=== PATIENT | male | born 1965 | race Caucasian/White ===

== ENCOUNTER 2020-06-15 14:49 | Inpatient (IN) ==
[2020-06-15 16:39] LABS: ABS Eosinophils 0.2 10^3/ul (0-0.6); ABS Lymphocytes 0.8 10^3/ul (1.0-4.8); ABS Monocytes 0.7 10^3/ul (0-0.8); ABS Neutrophils 9.6 10^3/ul (1.5-7.7); Eosinophil % 1.4 %; Hematocrit 35 % (42-52); Hemoglobin 12.3 g/dL (14.0-18.0); Lymphocyte % 7.2 %; Mean Corpuscular HGB Conc 35 g/dL (31-36); Mean Corpuscular Hemoglobin 32 pg (27-31); Mean Corpuscular Volume 92 fL (80-94); Mean Platelet Volume 7.8 fL (7.4-10.4); Platelet Count 237 10^3/uL (150-450); Red Cell Distribution Width 13 % (10-15); White Blood Count 11.4 10^3/uL (3.5-10.8)
[2020-06-15 16:51] LABS: Anion Gap 6 mmol/L (2-11); BUN/Creatinine Ratio 18.4 (8-20); Blood Urea Nitrogen 23 mg/dL (6-24); CO2 Carbon Dioxide 27 mmol/L (22-32); Calcium 9.4 mg/dL (8.6-10.3); Chloride 100 mmol/L (101-111); EGFR Non-African American 59.5 (>60); Glucose 98 mg/dL (70-100); Potassium 3.9 mmol/L (3.5-5.0); Sodium 133 mmol/L (135-145)
[2020-06-15 16:54] LABS: Activated Partial Thrombo Time 38.8 seconds (26.0-38.0); INR 1.14 (0.82-1.09); Troponin I 0.05 ng/mL (<0.03)
[2020-06-15 17:14] LABS: TSH Ultra Thyroid Stim Horm 1.52 mcIU/mL (0.34-5.60)
[2020-06-15 17:16] LABS: Free T4 0.92 ng/dL (0.61-1.12)
[2020-06-15] MEDS ORDERED: Senna TAB 8.6 mg TAB PO PRN (17:46)
[2020-06-15] MEDS ORDERED: Ondansetron 4 mg VIAL 2 MG/ML 2 ml VIAL IV PRN (17:46)
[2020-06-15] MEDS ORDERED: Oxymetazoline 0.05% NASAL SPR 15 ML BTL BOTH NARES ONE (17:55)
[2020-06-15] MEDS ORDERED: Magnesium Sulfate IV 1GM/100ML 1 GM/100 ML BAG IV ONE (17:58)
[2020-06-15] MEDS ORDERED: KCL 20 MEQ/100 ML IVPREMIX 20 MEQ/100 ML BAG IV ONE (17:58)
[2020-06-15 18:19] LABS: Magnesium 1.9 mg/dL (1.9-2.7)
[2020-06-15] MEDS ORDERED: Lactated Ringers 1000 ml BAG 1,000 ML IV SCH (19:00)
[2020-06-15 20:12] LABS: Troponin I 0.05 ng/mL (<0.03)
[2020-06-15] MEDS: Dabigatran 150 mg CAP (NF) PO SCH (21:03)
[2020-06-16 04:38] LABS: ABS Eosinophils 0.2 10^3/ul (0-0.6); ABS Lymphocytes 1.4 10^3/ul (1.0-4.8); ABS Monocytes 0.7 10^3/ul (0-0.8); ABS Neutrophils 5.5 10^3/ul (1.5-7.7); Hematocrit 39 % (42-52); Hemoglobin 13.2 g/dL (14.0-18.0); Mean Corpuscular HGB Conc 34 g/dL (31-36); Mean Corpuscular Hemoglobin 32 pg (27-31); Mean Corpuscular Volume 93 fL (80-94); Mean Platelet Volume 7.3 fL (7.4-10.4); Platelet Count 210 10^3/uL (150-450); Red Blood Count 4.16 10^6 /uL (4.18-5.48); Red Cell Distribution Width 13 % (10-15); White Blood Count 7.9 10^3/uL (3.5-10.8)
[2020-06-16 05:15] LABS: BUN/Creatinine Ratio 18.9 (8-20); Calcium 9.5 mg/dL (8.6-10.3); EGFR African American 87.1 (>60)
[2020-06-16] MEDS: Aspirin EC 81 mg TAB.EC (enteric coated) PO SCH (08:38)
[2020-06-16] MEDS: Vitamin THERAPEUTIC TAB PO SCH (08:39)
[2020-06-16] MEDS: CMC:OMEGA-3 FATTY ACID 1000 mg(NF) PO SCH (08:39)
[2020-06-16] MEDS: Dabigatran 150 mg CAP (NF) PO SCH ×2 (10:14→21:47)
[2020-06-17] MEDS: Vitamin THERAPEUTIC TAB PO SCH (09:19)
[2020-06-17] MEDS: Aspirin EC 81 mg TAB.EC (enteric coated) PO SCH (09:19)
[2020-06-17 09:25] LABS: ABS Basophils 0.1 10^3/ul (0-0.2); ABS Eosinophils 0.3 10^3/ul (0-0.6); ABS Monocytes 0.6 10^3/ul (0-0.8); ABS Neutrophils 5.3 10^3/ul (1.5-7.7); Eosinophil % 4.7 %; Hematocrit 36 % (42-52); Hemoglobin 12.4 g/dL (14.0-18.0); Lymphocyte % 14.1 %; Mean Corpuscular HGB Conc 35 g/dL (31-36); Mean Corpuscular Hemoglobin 32 pg (27-31); Mean Corpuscular Volume 93 fL (80-94); Mean Platelet Volume 7.4 fL (7.4-10.4); Platelet Count 237 10^3/uL (150-450); Red Blood Count 3.84 10^6 /uL (4.18-5.48); Red Cell Distribution Width 13 % (10-15); White Blood Count 7.3 10^3/uL (3.5-10.8)
[2020-06-17] MEDS: CMC:OMEGA-3 FATTY ACID 1000 mg(NF) PO SCH (09:28)
[2020-06-17] MEDS: Dabigatran 150 mg CAP (NF) PO SCH ×2 (09:28→20:01)
[2020-06-17 09:40] LABS: BUN/Creatinine Ratio 14.6 (8-20); Calcium 9.3 mg/dL (8.6-10.3); EGFR African American 90.1 (>60); EGFR Non-African American 74.4 (>60); Potassium 3.9 mmol/L (3.5-5.0)
[2020-06-18 06:07] LABS: Hematocrit 35 % (42-52); Hemoglobin 12.1 g/dL (14.0-18.0); Mean Corpuscular HGB Conc 35 g/dL (31-36); Mean Corpuscular Hemoglobin 32 pg (27-31); Mean Corpuscular Volume 93 fL (80-94); Mean Platelet Volume 7.2 fL (7.4-10.4); Platelet Count 228 10^3/uL (150-450); Red Blood Count 3.79 10^6 /uL (4.18-5.48); Red Cell Distribution Width 13 % (10-15); White Blood Count 7.1 10^3/uL (3.5-10.8)
[2020-06-18 06:25] LABS: BUN/Creatinine Ratio 16.3 (8-20); Calcium 9.3 mg/dL (8.6-10.3); EGFR African American 89.1 (>60); EGFR Non-African American 73.6 (>60); Potassium 3.9 mmol/L (3.5-5.0)
[2020-06-18] MEDS: Vitamin THERAPEUTIC TAB PO SCH (08:35)
[2020-06-18] MEDS: Aspirin EC 81 mg TAB.EC (enteric coated) PO SCH (08:36)
[2020-06-18] MEDS: Dabigatran 150 mg CAP (NF) PO SCH (08:36)
[2020-06-18] MEDS: CMC:OMEGA-3 FATTY ACID 1000 mg(NF) PO SCH (08:37)
[2020-06-18 11:50] VITALS: BP 93/66
== END 2020-06-18 13:49 | disposition home or self-care (01) | DRG 309 ==
LOC: ED 14:49 → MEDTELE 14:49 → ICU 14:49 → MEDTELE 06-16 21:59
PROVIDERS: ADMIT Internal Medicine; ATTEND Hospitalist

== ENCOUNTER 2021-04-25 20:28 | Inpatient (IN) ==
[2021-04-25 22:36] LABS: ALT 84 U/L (7-52); AST 144 U/L (13-39); Albumin 3.5 g/dL (3.2-5.2); Albumin/Globulin Ratio 1.2 (1-3); Alkaline Phosphatase 63 U/L (35-149); Anion Gap 12 mmol/L (2-11); Blood Urea Nitrogen 44 mg/dL (6-24); CO2 Carbon Dioxide 20 mmol/L (22-32); Calcium 8.2 mg/dL (8.6-10.3); Chloride 93 mmol/L (101-111); EGFR African American 55.4 (>60); EGFR Non-African American 45.8 (>60); Glucose 153 mg/dL (70-100); Potassium 2.8 mmol/L (3.5-5.0); Sodium 125 mmol/L (135-145); Total Protein 6.5 g/dL (6.4-8.9)
[2021-04-25 22:43] LABS: ABS Lymphocytes 0.1 10^3/ul (1.0-4.8); ABS Monocytes 0.1 10^3/ul (0-0.8); ABS Neutrophils 2.3 10^3/ul (1.5-7.7); Hematocrit 34 % (42-52); Hemoglobin 11.8 g/dL (14.0-18.0); Lymphocyte % 5.3 %; Mean Corpuscular HGB Conc 34 g/dL (31-36); Mean Corpuscular Hemoglobin 31 pg (27-31); Mean Corpuscular Volume 90 fL (80-94); Nucleated Red Blood Cells % 0.1; Platelet Count 76 10^3/uL (150-450); Red Blood Count 3.83 10^6 /uL (4.18-5.48); Red Cell Distribution Width 13 % (10-15); White Blood Count 2.6 10^3/uL (3.5-10.8)
[2021-04-25 22:44] LABS: Anisocytosis 1+
[2021-04-25 22:45] LABS: Platelet Morphology Large
[2021-04-25 22:46] LABS: Troponin I 0.23 ng/mL (<0.03)
[2021-04-25] MEDS ORDERED: cefTRIAXone 1 gm/50 mL NS BAG 1 GM/50 ML BAG IV ONE ×2 (23:19→23:34)
[2021-04-25] MEDS ORDERED: Azithromycin 500 mg/250 ml NS 500 MG/250 ML BAG IVPB ONE (23:19)
[2021-04-26] MEDS ORDERED: Potassium Chlor 20 meq TAB.ER PO ONE ×2 (01:13→02:15)
[2021-04-26 01:44] LABS: C Reactive Protein 109.52 mg/L (<8.01); Creatine Kinase 1600 U/L (10-223)
[2021-04-26] MEDS ORDERED: NS 0.9% 1000 ml BAG 500 ML IV SCH (03:30)
[2021-04-26 03:33] LABS: Magnesium 1.4 mg/dL (1.9-2.7)
[2021-04-26 03:54] LABS: Troponin I 0.23 ng/mL (<0.03)
[2021-04-26 03:58] LABS: RBC Parasite Smear No Parasites Seen (No Parasite)
[2021-04-26] MEDS ORDERED: Magnesium Sulf 4 GM/100 ML IV 4,000 MG/100 ML BAG IVPB ONE (05:18)
[2021-04-26 06:33] LABS: Urine Appearance Cloudy; Urine Bilirubin Negative (Negative); Urine Blood 3+ (Negative); Urine Color Amber; Urine Glucose Negative (Negative); Urine Ketones Negative (Negative); Urine Nitrite Negative (Negative); Urine Protein 2+(100 mg/dL) (Negative); Urine Specific Gravity 1.021 (1.002-1.030); Urine Urobilinogen Negative (Negative)
[2021-04-26 06:34] LABS: Urine Sodium Concentration < 18 mmol/L
[2021-04-26 06:44] LABS: Albumin/Globulin Ratio 1.3 (1-3); Calcium 6.8 mg/dL (8.6-10.3); EGFR Non-African American 63.6 (>60); Globulin 2.4 g/dL (2-4); Magnesium 1.3 mg/dL (1.9-2.7); Potassium 2.9 mmol/L (3.5-5.0); Total Bilirubin 0.5 mg/dL (0.2-1.0); Total Protein 5.4 g/dL (6.4-8.9)
[2021-04-26 06:52] LABS: Urine Bacteria Absent (Absent); Urine Granular Casts Present (Absent); Urine Red Blood Cell 2+(6-10/hpf) (Absent); Urine Squamous Epithelial Cell Present (Absent); Urine White Blood Cell 1+(6-10/hpf) (Absent)
[2021-04-26] MEDS ORDERED: Calcium Gluconate 2 GM in NS 0.9% 100 ml BAG 100 ML IVPB ONE (06:59)
[2021-04-26 07:23] LABS: ABS Lymphocytes 0.2 10^3/ul (1.0-4.8); ABS Monocytes 0.1 10^3/ul (0-0.8); Hematocrit 30 % (42-52); Hemoglobin 10.5 g/dL (14.0-18.0); Lymphocyte % 7.9 %; Mean Corpuscular HGB Conc 35 g/dL (31-36); Mean Corpuscular Hemoglobin 31 pg (27-31); Mean Corpuscular Volume 90 fL (80-94); Red Blood Count 3.36 10^6 /uL (4.18-5.48); Red Cell Distribution Width 14 % (10-15); Urine Creatinine Concentration 179.78 mg/dL; White Blood Count 2.2 10^3/uL (3.5-10.8)
[2021-04-26 07:25] LABS: Platelet Count 55 10^3/uL (150-450)
[2021-04-26] MEDS ORDERED: NS 0.9% 1000 ml BAG 1,000 ML IV ONE (09:34)
[2021-04-26] MEDS: KCL 20 MEQ/100 ML IVPREMIX 20 MEQ/100 ML BAG IV SCH ×2 (11:07→14:53)
[2021-04-26] MEDS ORDERED: Vancomycin 1,500 MG in NS 0.9% 250 ml 250 ML IVPB ONE (12:00)
[2021-04-26] MEDS: Multivitamins/Minerals TAB PO SCH (13:12)
[2021-04-26] MEDS: Dabigatran 150 mg CAP (NF) PO SCH ×2 (13:12→23:13)
[2021-04-26] MEDS: CMC:OMEGA-3 FATTY ACID 1000 mg(NF) PO SCH (13:12)
[2021-04-26] MEDS ORDERED: NS 0.9% 500 ml BAG 500 ML IV ONE (13:33)
[2021-04-26] MEDS ORDERED: Vancomycin per Pharmacy 1 EA NOTE FOLLOW UP PRN (16:09)
[2021-04-26 18:21] LABS: EGFR African American 71.4 (>60); Potassium 3.6 mmol/L (3.5-5.0)
[2021-04-26 19:31] LABS: Magnesium 2.3 mg/dL (1.9-2.7)
[2021-04-26 22:36] LABS: Troponin I 0.14 ng/mL (<0.03)
[2021-04-26] MEDS: cefTRIAXone 2 GM ADDV.VIAL 2 GM in NS 0.9% 100 ml BAG 100 ML IV SCH (23:11)
[2021-04-26] MEDS ORDERED: Azithromycin 500 mg/250 ml NS 500 MG/250 ML BAG IVPB SCH (23:55)
[2021-04-27] MEDS ORDERED: Vancomycin 1,250 MG in NS 0.9% 250 ml 250 ML IVPB SCH
[2021-04-27 06:39] LABS: Hematocrit 33 % (42-52); Hemoglobin 11.5 g/dL (14.0-18.0); Mean Corpuscular HGB Conc 35 g/dL (31-36); Mean Corpuscular Hemoglobin 31 pg (27-31); Mean Corpuscular Volume 90 fL (80-94); Platelet Count 44 10^3/uL (150-450); Red Blood Count 3.66 10^6 /uL (4.18-5.48); Red Cell Distribution Width 14 % (10-15); White Blood Count 2.7 10^3/uL (3.5-10.8)
[2021-04-27 06:44] LABS: Anion Gap 6 mmol/L (2-11); Blood Urea Nitrogen 32 mg/dL (6-24); CO2 Carbon Dioxide 23 mmol/L (22-32); Chloride 98 mmol/L (101-111); EGFR African American 81.8 (>60); EGFR Non-African American 67.6 (>60); Glucose 123 mg/dL (70-100); Magnesium 1.9 mg/dL (1.9-2.7); Potassium 3.9 mmol/L (3.5-5.0); Sodium 127 mmol/L (135-145); Troponin I 0.14 ng/mL (<0.03)
[2021-04-27 07:31] LABS: RBC Morphology Normal (Normal)
[2021-04-27 07:33] LABS: ABS Lymphocytes 0.5 10^3/ul (1.0-4.8); ABS Monocytes 0.4 10^3/ul (0-0.8); ABS Neutrophils 1.9 10^3/ul (1.5-7.7)
[2021-04-27] MEDS: Multivitamins/Minerals TAB PO SCH (08:35)
[2021-04-27] MEDS: Dabigatran 150 mg CAP (NF) PO SCH (08:35)
[2021-04-27] MEDS: CMC:OMEGA-3 FATTY ACID 1000 mg(NF) PO SCH (08:35)
[2021-04-27] MEDS: Aspirin EC 81 mg TAB.EC (enteric coated) PO SCH (08:35)
[2021-04-27] MEDS ORDERED: Furosemide 20 mg/2 ml IV VIAL IV ONE (22:10)
[2021-04-27] MEDS: cefTRIAXone 2 GM ADDV.VIAL 2 GM in NS 0.9% 100 ml BAG 100 ML IV SCH (22:29)
[2021-04-28 04:52] LABS: Hematocrit 31 % (42-52); Hemoglobin 10.6 g/dL (14.0-18.0); Mean Corpuscular HGB Conc 34 g/dL (31-36); Mean Corpuscular Hemoglobin 31 pg (27-31); Mean Corpuscular Volume 90 fL (80-94); Mean Platelet Volume 10.9 fL (7.4-10.4); Platelet Count 52 10^3/uL (150-450); Red Blood Count 3.46 10^6 /uL (4.18-5.48); Red Cell Distribution Width 14 % (10-15); White Blood Count 6.1 10^3/uL (3.5-10.8)
[2021-04-28 05:07] LABS: Calcium 7.9 mg/dL (8.6-10.3); EGFR African American 80.9 (>60); EGFR Non-African American 66.9 (>60); Potassium 3.4 mmol/L (3.5-5.0)
[2021-04-28 05:38] LABS: RBC Morphology Normal (Normal)
[2021-04-28 05:41] LABS: Dohle Bodies Present
[2021-04-28 05:42] LABS: ABS Lymphocytes 1.4 10^3/ul (1.0-4.8); ABS Neutrophils 3.6 10^3/ul (1.5-7.7); Lymphocyte % 22.8 %; Nucleated Red Blood Cells % 0.1
[2021-04-28] MEDS ORDERED: Potassium Chlor 20 meq TAB.ER PO ONE (07:32)
[2021-04-28] MEDS: CMC:OMEGA-3 FATTY ACID 1000 mg(NF) PO SCH (08:31)
[2021-04-28] MEDS: Multivitamins/Minerals TAB PO SCH (08:31)
[2021-04-28] MEDS: Aspirin EC 81 mg TAB.EC (enteric coated) PO SCH (08:31)
[2021-04-28] MEDS ORDERED: Vancomycin Trough Check NOTE FOLLOW UP ONE (11:30)
[2021-04-28] MEDS ORDERED: Furosemide 20 mg/2 ml IV VIAL IV ONE (12:28)
[2021-04-28] MEDS ORDERED: Potassium Chloride LIQUID 20 MEQ/15 ML LIQUID PO ONE (12:29)
[2021-04-28 14:09] LABS: Anaplasma phagocytophilum Positive (Negative); B. miyamotoi PCR, B Negative (Negative); Babesia divergens/MO-1 Negative (Negative); Babesia ducani Negative (Negative); Ehrlichia chaffeensis Negative (Negative); Ehrlichia ewingii/canis Negative (Negative); Ehrlichia muris eauclairensis Negative (Negative)
[2021-04-28] MEDS: CMC:Dabigatran 150 mg CAP (NF) PO SCH (20:41)
[2021-04-29 06:28] LABS: Anion Gap 6 mmol/L (2-11); CO2 Carbon Dioxide 22 mmol/L (22-32); Calcium 8.1 mg/dL (8.6-10.3); Chloride 103 mmol/L (101-111); Magnesium 1.6 mg/dL (1.9-2.7); Potassium 3.6 mmol/L (3.5-5.0); Sodium 131 mmol/L (135-145)
[2021-04-29 06:34] LABS: Blood Urea Nitrogen 23 mg/dL (6-24); EGFR African American 115.5 (>60); EGFR Non-African American 95.5 (>60); Glucose 101 mg/dL (70-100)
[2021-04-29 06:43] LABS: Hematocrit 32 % (42-52); Hemoglobin 11.1 g/dL (14.0-18.0); Mean Corpuscular HGB Conc 35 g/dL (31-36); Mean Corpuscular Hemoglobin 32 pg (27-31); Mean Corpuscular Volume 91 fL (80-94); Mean Platelet Volume 10.9 fL (7.4-10.4); Platelet Count 70 10^3/uL (150-450); Red Blood Count 3.51 10^6 /uL (4.18-5.48); Red Cell Distribution Width 14 % (10-15)
[2021-04-29] MEDS ORDERED: Magnesium Sulfate 2 gm BAG 2 GM/50 ML BAG IVPB ONE (07:08)
[2021-04-29] MEDS ORDERED: Potassium Chlor 20 meq TAB.ER PO ONE (07:08)
[2021-04-29] MEDS: CMC:Dabigatran 150 mg CAP (NF) PO SCH ×2 (10:02→22:21)
[2021-04-29] MEDS: CMC:OMEGA-3 FATTY ACID 1000 mg(NF) PO SCH (10:02)
[2021-04-29] MEDS: Aspirin EC 81 mg TAB.EC (enteric coated) PO SCH (10:02)
[2021-04-29] MEDS: Multivitamins/Minerals TAB PO SCH (10:02)
[2021-04-29] MEDS ORDERED: Furosemide 20 mg/2 ml IV VIAL IV ONE (11:50)
[2021-04-29 13:29] LABS: Troponin I 0.05 ng/mL (<0.03)
[2021-04-30 06:45] LABS: Hematocrit 32 % (42-52); Hemoglobin 10.9 g/dL (14.0-18.0); Mean Corpuscular HGB Conc 34 g/dL (31-36); Mean Corpuscular Hemoglobin 31 pg (27-31); Mean Corpuscular Volume 91 fL (80-94); Mean Platelet Volume 10.3 fL (7.4-10.4); Platelet Count 110 10^3/uL (150-450); Red Blood Count 3.49 10^6 /uL (4.18-5.48); Red Cell Distribution Width 14 % (10-15); White Blood Count 8.6 10^3/uL (3.5-10.8)
[2021-04-30 07:10] LABS: Calcium 8.2 mg/dL (8.6-10.3); EGFR African American 110.9 (>60); EGFR Non-African American 91.7 (>60); Magnesium 1.9 mg/dL (1.9-2.7); Potassium 3.9 mmol/L (3.5-5.0)
[2021-04-30] MEDS: Multivitamins/Minerals TAB PO SCH (09:45)
[2021-04-30] MEDS: Aspirin EC 81 mg TAB.EC (enteric coated) PO SCH (09:47)
[2021-04-30] MEDS: CMC:OMEGA-3 FATTY ACID 1000 mg(NF) PO SCH (09:47)
[2021-04-30] MEDS: CMC:Dabigatran 150 mg CAP (NF) PO SCH (09:47)
[2021-04-30 16:09] VITALS: BP 114/65
== END 2021-04-30 17:00 | disposition home or self-care (01) | DRG 871 ==
LOC: ED 20:28 → MEDTELE 04-26 03:42
PROVIDERS: ADMIT Hospitalist; ATTEND Internal Medicine